=== PATIENT | female | born 1975 | race Caucasian/White ===

== ENCOUNTER 2018-02-18 23:53 | Inpatient (IN) | payer BC ==
[2018-02-19 01:09] LABS: #Basophils 0.1 thou/uL (0.0-0.2); #Eosinphils 0.2 thou/uL (0.0-0.7); #Lymphocytes 2.7 thou/uL (1.20-3.40); #Monocytes 0.6 thou/uL (0.11-0.59); #Neutrophils 7.3 thou/uL (1.40-6.50); %Basophils 0.8 % (0.0-1.0); %Eosinophils 1.4 % (0.0-10.0); %Lymphocytes 25.1 % (21.0-51.0); %Monocytes 5.3 % (0.0-10.0); %Neutrophils 67.4 % (42.0-75.0); Hemoglobin 14.3 g/dL (12.0-16.0); Mean Corpuscular HGB CONC 33.9 g/dL (32.0-36.0); Mean Corpuscular Hemoglobin 34.1 pg (27.0-31.0); Mean Platelet Volume 6.9 fL (7.4-10.4); Platelet Count 342 thou/uL (130-400); RBC Distribution Width 11.6 % (11.5-14.5); Red Blood Cell (RBC) Count 4.21 mill/uL (4.20-5.40); White Blood Cell (WBC) Count 10.9 thou/uL (4.8-10.8)
[2018-02-19] MEDS ORDERED: Ondansetron HCl/PF 4 MG/2 ML Vial ONE (01:22)
[2018-02-19 01:29] LABS: ALT (SGPT) 17 U/L (8-55); AST (SGOT) 16 U/L (5-34); Albumin 4.2 g/dL (3.5-5.0); Alkaline Phosphatase 60 U/L (40-150); Anion Gap 13 mmol/L (10-20); BUN (Urea Nitrogen) 10 mg/dL (7.0-18.7); Bilirubin, Total 0.3 mg/dL (0.2-1.2); Calc. Creatinine Clearance 0 mL/min (70-130); Calcium 9.2 mg/dL (7.8-10.44); Carbon Dioxide 25 mmol/L (22-29); Chloride 106 mmol/L (98-107); Estimated GFR-MDRD 71; Globulin 3.3 g/dL (2.4-3.5); Glucose 113 mg/dL (70-105); Potassium 3.8 mmol/L (3.5-5.1); Protein, Total 7.5 g/dL (6.0-8.3); Sodium 140 mmol/L (136-145)
[2018-02-19 01:30] LABS: Acetaminophen Less than 6.0 mcg/mL (10.0-30.0); Alcohol Less than 10 mg/dL (Less than 10); CK (CPK) 85 U/L (29-168); Magnesium 1.9 mg/dL (1.6-2.6); Salicylate Less than 8.0 mg/dL (15.0-30.0)
[2018-02-19 01:33] LABS: CKMB 0.5 ng/mL (0-6.6); Troponin I Less than 0.010 ng/mL (< 0.028)
[2018-02-19 04:05] LABS: Bilirubin Negative (Negative); Blood, Urine Negative (Negative); Clarity CLOUDY (Clear); Glucose, Urine (Dipstick) Negative (Negative); Leukocyte Trace (Negative); Nitrite Negative (Negative); Protein, Urine (Dipstick) Negative (Neg-Trace); Specific Gravity, Urine 1.007 (1.002-1.036); Urobilinogen 0.2 mg/dL (0.2-1.0); pH, Urine 6.5 (5.0-9.0)
[2018-02-19 04:07] LABS: Bacteria/HPF 2+ HPF (None Seen); Hyaline Casts/LPF 0-3 HYALINE CAST LPF (0-3 Hyaline); Pathc Cast-AUWi Flag 0.29 (0-2.49); WBC/HPF 21-50 HPF (0-3)
[2018-02-19 04:12] LABS: RBC/HPF 0-3 HPF (0-3)
[2018-02-19 04:14] LABS: Amphetamine Not Detected (NotDetected); Barbiturates Screen Not Detected (NotDetected); Benzodiazepine Screen Not Detected (NotDetected); Cocaine Metabolite Screen Not Detected (NotDetected); Medtox Control Line Valid? VALID (VALID); Medtox Reader # READER 1; Methadone Not Detected (NotDetected); Methamphetamine Not Detected (NotDetected); Opiate Screen Not Detected (NotDetected); Oxycodone Screen Not Detected (NotDetected); Phencyclidine (PCP) Not Detected (NotDetected); THC/Cannabinoid Screen Not Detected (NotDetected); Tricyclic Screen Detected (NotDetected)
[2018-02-19 04:57] VITALS: BMI 36.2
[2018-02-19] MEDS ORDERED: Lorazepam 2 MG/ML VIAL SLOW IVP SCH ×2 (08:45→15:30)
--- NOTE | 2018-02-19 09:29 | CT ---
PRELIMINARY REPORT/[facility]/EMERGENTY AFTER-HOURS PROCEDURE CT Angiography Head With Intravenous Contrast EXAM DATE/TIME: 02/19/2018 1:53 AM CLINICAL HISTORY: 42 years old, female; Pain and signs and symptoms; Weakness; Headache; Patient HX: 42 yo f presents t o ed with weakness. PT reports progressively worsening weakness to the left upper and lower extremiti es over the past 2 days, with associated dizziness and worsening gait instability. PT reports baseline gait instability but states it has recently worsened. PT reports HX of prior right s ided posterior stroke; Additional info: This is a cta head and a venogram. Adittional 30 second delay ed used after cta according to protocol for venogram. TECHNIQUE: Axial computed tomographic angiography images of the head with intravenous contrast using CT angiogra phy protocol. MIP reconstructed images were created and reviewed. COMPARISON: No relevant prior studies available. FINDINGS: Right internal carotid artery: Unremarkable. Intracranial segment is patent with no significant steno sis. No aneurysm. Right anterior cerebral artery: Unremarkable. No occlusion or significant stenosis. No aneurysm. Right middle cerebral artery: Unremarkable. No occlusion or significant stenosis. No aneurysm. Right posterior cerebral artery: Unremarkable. No occlusion or significant stenosis. No aneurysm. Right vertebral artery: Unremarkable. No occlusion or significant stenosis. No aneurysm. Left internal carotid artery: Unremarkable. Intracranial segment is patent with no significant stenos is. No aneurysm. Left anterior cerebral artery: Unremarkable. No occlusion or significant stenosis. No aneurysm. Left middle cerebral artery: Unremarkable. No occlusion or significant stenosis. No aneurysm. Left posterior cerebral artery: Unremarkable. No occlusion or significant stenosis. No aneurysm. Left vertebral artery: Unremarkable. No occlusion or significant stenosis. No aneurysm. Basilar artery: Unremarkable. No occlusion or significant stenosis. No aneurysm. Dural sinuses/cerebral veins: Normal contrast opacification of the dural venous sinuses and cavernous sinuses. IMPRESSION: No acute findings. Thank you for allowing us to participate in the care of your patient. Dictated and Authenticated by: Husam Dumont MD 02/19/2018 3:03 AM Central Time ([place] & [place]) CT ANGIOGRAM HEAD WITH 3D RENDERING: Emergency after hours exam, 02-19-18 at 1:56 a.m. FINDINGS: Multiple small areas of encephalomalacia on the right side including the right frontal and right noe etal occipital areas. No evidence for major branch occlusion. No evidence of an aneurysm. Code QA. I agree with [facility]. POS: [facility]
--- NOTE | 2018-02-19 09:30 | CT ---
PRELIMINARY REPORT/[facility]/EMERGENTY AFTER-HOURS PROCEDURE CT Head Without Intravenous Contrast EXAM DATE/TIME: 02/19/2018 1:52 AM CLINICAL HISTORY: 42 years old, female; Pain; Headache; Migraine; Patient HX: 42 yo f presents to ed with weakness. PT reports progressively worsening weakness to the left upper and lower extremities over the past 2 days , with associated dizziness and worsening gait instability. PT reports baseline gait instability but states it has recently worsened. PT reports HX of prior right sided posterior stroke TECHNIQUE: Axial computed tomography images of the head/brain without intravenous contrast. COMPARISON: No relevant prior studies available. FINDINGS: Brain: Mild multifocal right-sided encephalomalacia. No brain edema. No intracranial hemorrhage. Ventricles: Normal. No ventriculomegaly. Bones/joints: Normal. No acute fracture. Sinuses: Normal as visualized. No acute sinusitis. Mastoid air cells: Normal as visualized. No mastoid effusion. Soft tissues: Normal. IMPRESSION: No acute brain findings. Thank you for allowing us to participate in the care of your patient. Dictated and Authenticated by: Husam Dumont MD 02/19/2018 2:10 AM Central Time ([place] & [place]) FINAL REPORT CT BRAIN: Date: 02/19/18 HISTORY: Stroke. Patient has a history of headaches and migraines. TECHNIQUE: Noncontrast enhanced CT images of the brain obtained. COMPARISON: Previous exam from 03/27/15. FINDINGS: CT brain demonstrates old areas of stroke in the right frontal and right parietal regions. This is un changed since the previous comparison exam. No evidence of acute intracranial masses or lesions seen. No evidence of acute hemorrhages or intracr anial abnormalities noted. IMPRESSION: Old areas of right hemispheric stroke, not significantly changed since the previous exam. No acute in tracranial pathology seen. QAVRPKASH POS: [facility]
[2018-02-19] MEDS ORDERED: FEXOFENADINE HCL 60 MG PO PRN (09:35)
[2018-02-19] MEDS ORDERED: hydrALAZINE 20 MG/ML VIAL SLOW IVP PRN (09:35)
[2018-02-19] MEDS ORDERED: Non-Formulary Item 1 EACH (Ranitidine Hcl [Ranitidine Hcl] 150 MG) PO PRN (09:35)
[2018-02-19] MEDS ORDERED: Loratadine 10 MG TAB PO PRN (09:45)
[2018-02-19] MEDS ORDERED: Famotidine 20 MG TAB PO PRN (09:47)
[2018-02-19] MEDS: Acetaminophen 325 MG TAB PO PRN ×2 (10:28→17:05)
--- NOTE | 2018-02-19 10:54 | HP ---
PRIMARY CARE PHYSICIAN: Clifford Edwards MD NEUROLOGIST: Alen Lopez M.D. CHIEF COMPLAINT: Left foot feeling heavy and warm. HISTORY OF PRESENT ILLNESS: Ms. Cazares is a pleasant 42-year-old female that has a history of previ ous cerebrovascular accident as well as hypertension. She was in her usual state of health until yes terday. She felt a very heavy sensation in her foot and her whole left side felt numb. This started around 9-11 p.m. last night. She also felt dizzy and felt like her vision was blurry or like it had stuff in her eyes. She was concerned about this given that she has had a previous "multiple strokes in the past" and for this reason, she came to the emergency room for evaluation. In the ER, she had a stat CT scan which was reported as being negative as well as a CT of the [place] and she is being admitted for further evaluation. The patient continues to have weakness and numbness in the foot and has noted a mild headache. She denies any other symptoms such as chest pain, shortness of breath, no PND, no orthopnea. She says that in the last several days since Sunday, she has not been feeling herself. She has been feeling tired and drained. She has also noted a headache off and on a s well as an elevated blood pressure off and on, but otherwise no other complaints. REVIEW OF SYSTEMS: All systems were reviewed and are negative except for that mentioned in the histo ry of present illness. PAST MEDICAL HISTORY: Significant for multiple cerebrovascular accidents in the first being in 2014 as well as hypertension. PAST SURGICAL HISTORY: She has had bilateral tubal ligation. ALLERGIES: HYDROCODONE. SOCIAL HISTORY: She is a nonsmoker, nondrinker, no illicit drug use. She has two children. She wor ks in an insurance office. FAMILY HISTORY: Significant for her mother who has dementia as well as heart disease and coronary ar yanick disease. Father, who has had an PR. MEDICATIONS: Include amitriptyline 50 mg at bedtime, aspirin 325 mg daily, Lipitor 20 mg daily, janis nopril 10 mg a day, citalopram 20 mg daily, Suly 30 mg daily, melatonin 10 mg daily, ranitidine 15 0 mg daily. PHYSICAL EXAMINATION: GENERAL: She is alert and oriented. She appears to be in no acute distress. She is well developed and well nourished. VITAL SIGNS: The blood pressure was 150/96, heart rate 121, respiratory rate of 16, temperature is 9 8.5. HEENT: Pupils are equal, round, and reactive. Extraocular muscles are intact. Her sclerae are anic teric. Throat: There is no erythema, no exudates. NECK: No adenopathy, no bruits. LUNGS: Clear to auscultation bilaterally. There is no wheezing, no rales. CARDIOVASCULAR: She has a normal S1, S2. I did not appreciate an S3 or S4. No murmurs, clicks or r ubs. ABDOMEN: Obese, it is soft, it is nontender, nondistended. Positive for bowel sounds. There is no rebound, no guarding. EXTREMITIES: There is no clubbing or cyanosis, no edema. NEUROLOGIC: Her muscle strength is 5/5 in both her upper and lower extremities; however, in the left leg, she has a decrease strength compared to the right with both abduction, extension and flexion of the foot at the ankle, and her reflexes are slightly diminished on the left as compared to the right . The upper extremities, the strength is equal. Good handle bender strength and there is no drift. She was able to do heel to james and [id number] without difficulty. LABORATORY DATA: Her sodium was 140, potassium 3.8, chloride is 106, CO2 is 25, BUN of 10, creatinin e 0.8, glucose is 113, bilirubin 0.3. Her white blood cell count is 10.9, hemoglobin 14.3, hematocri t is 42.3, platelet count is 342. She had an EKG which was sinus rhythm, it was a tachycardia with a rate of 102 and a rightward axis, this is by my reading. Reviewing the CT scan of the brain, there appears to be no acute infarct or change or bleed, and this is by my reading as well. ASSESSMENT AND PLAN: This is a pleasant 42-year-old female that has a history of prior cerebrovascul ar accident which has been documented in our records back in 2014. At that time, she says they felt that the stroke may have been the result of her being on oral contraceptives as well as hypertension. It is noted that she had a transesophageal echo at that time which was negative. Carotid Dopplers were also negative several months later. She will therefore be admitted for possible acute stroke. We will need to follow this up with an MRI. We will likely get a repeat carotid Doppler and echo. M onitor her for signs of occult atrial fibrillation and I also recommended that she see a reduction plant supervisor in the outpatient setting for an outpatient event monitor for occult atrial fibrillation as well. W kt will also consult Neurology for further recommendations. Continue aspirin and statin therapy, chec k her lipid panel. For hypertension, we will go ahead and continue lisinopril and place her on hydra lazine as needed and further recommendations are to follow.
[2018-02-19] MEDS ORDERED: ISOVUE-370 76%-LOCM 1 ML ONE (11:05)
[2018-02-19] MEDS ORDERED: Aspirin 325 MG TAB PO SCH (13:30)
--- NOTE | 2018-02-19 16:35 | MRI ---
MRI OF BRAIN 02/19/18 INDICATION: New onset left sided weakness, progressive. COMPARISON: MRI of the brain 03/28/15. FINDINGS: Redemonstration of focal encephalomalacia of the lateral right frontal lobe involving cortex and whit e matter with slight ex vacuo dilatation of the frontal horn of the right lateral ventricle. There is no new intracranial hemorrhagic susceptibility. No evidence of an acute territorial infarction. Foca l gliosis of the right occipitoparietal region is similar. The visualized skull base flow voids are g rossly patent. There is minimal mucosal thickening of the paranasal sinuses. IMPRESSION: Redemonstration of multifocal encephalomalacia of the right cerebral hemisphere. No acute territorial infarction. POS: [facility]
--- NOTE | 2018-02-19 18:31 | MRI ---
MRA NECK NONCONTRAST: Date: 02/19/18 HISTORY: CVA. Vascular disease. FINDINGS: There is good flow into each carotid and vertebral system. Each carotid bifurcation and internal pizano tid artery are patent. Vertebral arteries are codominant. No focal stenosis. IMPRESSION: No significant abnormalities are demonstrated. POS: [facility]
--- NOTE | 2018-02-19 19:45 | PDOC.EVN ---
Event Note - Event Note Event Note: Notified by nursing that the patient's family was highly concerned about the patient's potential UTI. The patient was informed by Neurology that she did not appear to have a neurological source of her symptoms but did have evidence of UTI. They are concerned that this is causing some back pain and her other symptoms. (per nurse). I reviewed the record. She does have some evidence of UTI. She has a history of BTL. I ordered a urine culture and started Rocephin 1 gm q 24 hours to start tonight.
[2018-02-19] MEDS: Ibuprofen 200 MG TAB PO PRN (20:00)
[2018-02-19] MEDS ORDERED: cefTRIAXone\\ROCEPHIN 1 GM in Sodium Chloride 0.9% 100 ML IVPB SCH (20:00)
[2018-02-19] MEDS ORDERED: MELATONIN PO SCH (21:00)
[2018-02-19] MEDS ORDERED: Amitriptyline HCl 25 MG TAB PO SCH (21:00)
[2018-02-19] MEDS ORDERED: Atorvastatin Calcium 40 MG TAB PO SCH (21:00)
[2018-02-19] MEDS ORDERED: Melatonin 3 MG TAB PO SCH (21:00)
--- NOTE | 2018-02-19 22:03 | CON ---
DATE OF CONSULTATION: 02/19/2018 CONSULTING PHYSICIAN: Hospitalist Service. IMPRESSION: 1. Headache with tingling likely secondary to a migraine. 2. Prior stroke. 3. Hypertension. PLAN: 1. Continue home medications. 2. The patient can be discharged home. HISTORY: Ms. Cazares is a 42-year-old white female with a past history of a stroke in the right keesha sphere involving the frontal and occipital regions. She was doing well until this weekend when she s tarted experiencing a right-sided headache. Headache persisted on and then she developed numbness in volving the left arm and leg. There was no associated weakness or slurred speech. The numbness is p ersistent at this point more in the leg than in the arm. She denies any similar events like this. S he had an MRI of the brain done today which does not demonstrate any acute ischemic changes only the chronic findings as noted above. LABORATORY STUDIES: Including CBC, comprehensive metabolic panel with urine and toxicology were only notable for urinary tract infection. PAST MEDICAL HISTORY: As listed above. ALLERGIES: HYDROCODONE. MEDICATION LIST: Reviewed. SOCIAL HISTORY: No tobacco or illicit drug use. FAMILY HISTORY: Noncontributory. REVIEW OF SYSTEMS: No chest pain, shortness of breath, nausea, vomiting, or vertigo. PHYSICAL EXAMINATION: GENERAL: She is an overweight middle-aged woman, lying in bed in no distress. VITAL SIGNS: Blood pressure 145/99, pulse 102, respirations 16, temperature 98.2. HEENT: Pupils are equal and reactive. Conjunctivae clear. Oropharynx clear. NECK: Supple. EXTREMITIES: No cyanosis. NEUROLOGIC: She is alert and appropriate. Her speech is fluent and clear. Cranial nerves are intac t. Motor exam shows symmetric strength. She has subjectively diminished sensation in the left leg t o light touch. Plantar responses were downgoing. She can still stand and walk independently. SUMMARY: Given the presence of hemicranial headache and tingling, I suspect that she has a migraine. She could be treated with some Toradol and Reglan. I would continue her prior home medications.
[2018-02-20 04:44] LABS: #Basophils 0.1 thou/uL (0.0-0.2); #Eosinphils 0.2 thou/uL (0.0-0.7); #Lymphocytes 4.1 thou/uL (1.20-3.40); #Monocytes 0.7 thou/uL (0.11-0.59); #Neutrophils 4.8 thou/uL (1.40-6.50); %Basophils 1.1 % (0.0-1.0); %Eosinophils 2.4 % (0.0-10.0); %Lymphocytes 41.4 % (21.0-51.0); %Monocytes 6.8 % (0.0-10.0); %Neutrophils 48.4 % (42.0-75.0); Hemoglobin 13.8 g/dL (12.0-16.0); Mean Corpuscular HGB CONC 33.5 g/dL (32.0-36.0); Mean Corpuscular Hemoglobin 33.7 pg (27.0-31.0); Mean Platelet Volume 7.1 fL (7.4-10.4); Platelet Count 307 thou/uL (130-400); RBC Distribution Width 11.6 % (11.5-14.5); Red Blood Cell (RBC) Count 4.09 mill/uL (4.20-5.40); White Blood Cell (WBC) Count 9.9 thou/uL (4.8-10.8)
[2018-02-20 05:17] LABS: Anion Gap 14 mmol/L (10-20); BUN (Urea Nitrogen) 10 mg/dL (7.0-18.7); Calc. Creatinine Clearance 152 mL/min (70-130); Carbon Dioxide 21 mmol/L (22-29); Cardiac Risk 3.7 (Less than 4.5); Chloride 107 mmol/L (98-107); Cholesterol 103 mg/dl (< 200 Desired); Estimated GFR-MDRD 81; Glucose 88 mg/dL (70-105); HDL Cholesterol 28 mg/dL (>60 Neg Risk); LDL Cholesterol, Calculated 38 mg/dL; Sodium 138 mmol/L (136-145); Triglycerides 186 mg/dL (Less than 150)
[2018-02-20] MEDS ORDERED: Lisinopril 10 MG TAB PO SCH (09:00)
[2018-02-20] MEDS ORDERED: Amitriptyline HCl 25 MG TAB PO SCH (09:00)
[2018-02-20] MEDS ORDERED: Citalopram 20 MG TAB PO SCH (09:00)
[2018-02-20] MEDS ORDERED: Lisinopril 5 MG TAB PO SCH (09:00)
[2018-02-20] MEDS ORDERED: Enoxaparin Sodium 40 MG/0.4 ML SYRINGE SC SCH (09:00)
[2018-02-20] MEDS ORDERED: CITALOPRAM HYDROBROMIDE 20 MG PO SCH (09:00)
[2018-02-20] MEDS ORDERED: Amitriptyline HCl 10 MG TAB PO SCH (09:00)
[2018-02-20] MEDS ORDERED: Aspirin 325 mg Enteric Coated Tablet PO SCH (09:00)
[2018-02-20] MEDS: Ibuprofen 200 MG TAB PO PRN (11:10)
[2018-02-20 11:53] VITALS: BP 131/91; TEMP 98.3
--- NOTE | 2018-02-20 12:03 | PDOC.PN ---
- Subjective Encounter Start Date: 02/20/18 Encounter Start Time: 12:00 Ms. Anne was seen today in follow-up of Left foot weakness and numbness. - Objective Resuscitation Status: Resuscitation Status FULL:Full Resuscitation MAR Reviewed: Yes Vital Signs & Weight: Vital Signs (12 hours) Temp Pulse Resp BP Pulse Ox 02/20/18 11:52 98.3 F 96 16 131/91 H 97 02/20/18 08:00 98.5 F 91 20 123/84 95 02/20/18 04:00 97.6 F 88 18 117/80 95 Weight Weight 224 lb 6 oz I&O: 02/19/18 02/20/18 02/21/18 06:59 06:59 06:59 Intake Total 1800 Balance 1800 Result Diagrams: 02/20/18 04:03 02/20/18 04:03 Phys Exam - Physical Examination HEENT: PERRLA Respiratory: no wheezing, no rales, no rhonchi, clear to auscultation bilateral Cardiovascular: RRR, no significant murmur, no rub Gastrointestinal: soft, non-tender, no distention, positive bowel sounds Musculoskeletal: no edema Dx/Plan (1) Left leg weakness Code(s): R29.898 - OTH SYMPTOMS AND SIGNS INVOLVING THE MUSCULOSKELETAL SYSTEM Status: Acute (2) Hypertension Code(s): I10 - ESSENTIAL (PRIMARY) HYPERTENSION Status: Chronic (3) CVA (cerebrovascular accident) Code(s): I63.9 - CEREBRAL INFARCTION, UNSPECIFIED Status: Suspected - Plan * Left Leg weakness- ? etiology an acute CVA was not seen on MRI- this is improving, so it could be TIA or RIND * UTI - she is relatively asymptomatic- except for some low back pain- will send home on Bactrim * HTN- blood pressure is controlled * Stable for discharge home
--- NOTE | 2018-02-20 12:45 | DIS ---
PRIMARY CARE PHYSICIAN: Dr. Clifford Edwards. DATE OF ADMISSION: 02/19/2018 DATE OF DISCHARGE: 02/20/2018 DISCHARGE DISPOSITION: Home. PRIMARY DISCHARGE DIAGNOSES: 1. Left leg weakness, questionable etiology, possible transient ischemic attack versus ____. 2. Hypertension. 3. History of cerebrovascular accident. DISCHARGE MEDICATIONS: Lipitor 20 mg at bedtime, aspirin 325 mg daily, ranitidine 150 mg as needed, melatonin 10 mg at bedtime, lisinopril 10 mg daily, fexofenadine 60 mg as needed, Celexa 20 mg daily, cetirizine 10 mg as needed, amitriptyline 50 mg as needed. PROCEDURES DONE DURING ADMISSION: The patient had an MRI of the brain showing redemonstration of the multifocal encephalomalacia in the right cerebral hemisphere. There was no tentorial infarction. T he patient had a CT scan of the brain showing old areas of right hemispheric stroke. There was no si gnificant change since the prior exam. The patient also had a CT angio of the [place] and t here were multiple small areas of encephalomalacia and no evidence of any aneurysm. The patient had an MRI MR angiogram of the neck with no significant changes indicated. CODE STATUS: FULL CODE. ALLERGIES: HYDROCODONE. HOSPITAL COURSE: Ms. Cazares is a pleasant 42-year-old female who presented to the emergency room co mplaining of her foot feeling heavy and warm. She was concerned because she has had multiple strokes in the past. She was evaluated in the ER, she had a CT scan of the brain which was negative and was brought in to the hospital for presumed acute cerebrovascular accident or possible TIA. This was es sentially ruled out with regards to stroke; however, TIA is still probable. She was seen by Neurolog y and it was felt that this could be related to a migraine. She was also incidentally noted to have a urinary tract infection. She notes some lower back pain which she told me was actually mild, no sy mptoms of any dysuria or frequency and she will be treated with Bactrim for this. Echo was pending a t the time of discharge. She is clinically stable and therefore can be discharged home with close fo llow up in the outpatient setting, preferably within 1 week.
[2018-02-20 15:07] LABS: ANA Symphony (Qualitative) Negative (Negative); dsDNA IgG Antibody 1.6 IU/mL (<10 Negative)
== END 2018-02-20 15:14 | disposition home or self-care (01) | DRG 69 ==
LOC: ERS 23:53 → 2SE 02-19 03:58
PROVIDERS: ADMIT Internal Medicine; ATTEND Internal Medicine
DX: G45.9 Transient cerebral ischemic attack, unspecified (principal); I10 Essential (primary) hypertension; M21.42 Flat foot [pes planus] (acquired), left foot; G43.909 Migraine, unspecified, not intractable, without status migrainosus
CPT/HCPCS: 36415; 70450; 70496; 70547; 70551; 80048; 80053; 80061; 80306; 80307; 81003; 81015; 82553; 83735; 84484; 85025; 85652; 86038; 86225; 87086; 93005; 93306; 96374; G8978-GP-CJ; G8979-GP-CJ; G8980-GP-CJ; G8987-GO-CI; G8988-GO-CI; G8989-GO-CI; G9162-GN-CI; G9163-GN-CI; J0696; J1650; J2060; J2405; J7050